=== PATIENT | female | born 1980 | race Caucasian/White ===

== ENCOUNTER → 2024-11-03 12:00 | Outpatient (REF) | payer BC, SELFPAY | LOC: DHSLP 12:00 | PROVIDERS: ATTENDING PHYSICIAN Family Medicine | DX: G47.19 Other hypersomnia (principal); R06.83 Snoring; F45.8 Other somatoform disorders; Z72.820 Sleep deprivation; R53.83 Other fatigue | CPT/HCPCS: 95806 ==

== ENCOUNTER → 2025-02-26 15:44 | Outpatient (REF) | payer BC, SELFPAY | LOC: DHSLP 15:44 | PROVIDERS: ATTENDING PHYSICIAN Internal Medicine Critical Care Medicine; FAMILY PHYSICIAN Family Medicine | DX: G47.00 Insomnia, unspecified (principal) | CPT/HCPCS: 95810 ==

== ENCOUNTER → 2025-06-12 17:07 | Outpatient (REF) | payer BC, SELFPAY | LOC: WDC 17:07 | PROVIDERS: ATTENDING PHYSICIAN Obstetrics & Gynecology Gynecology; FAMILY PHYSICIAN Family Medicine | DX: Z12.39 Encounter for other screening for malignant neoplasm of breast (principal); Z12.31 Encounter for screening mammogram for malignant neoplasm of breast | CPT/HCPCS: 77063; 77067 ==